=== PATIENT | female | born 1960 | race Caucasian/White ===

== ENCOUNTER 2023-01-06 07:20 | Day surgery (SDC) | payer BC ==
[~2023-01-06] VITALS: Ht 165.1 cm; Wt 74.0 kg
[2023-01-06] MEDS ORDERED: FOSAMAX 70MG TA70 MG PO (07:45)
[2023-01-06] MEDS ORDERED: CENTRUM1 TA1 (07:46)
[2023-01-06] MEDS ORDERED: CALCIUM 600600 MG PO (07:46)
[2023-01-06] MEDS ORDERED: VITAMIN D31000 IU PO (07:47)
[2023-01-06] MEDS ORDERED: OMEGA-3 1000 MG1 CAP PO (07:47)
[2023-01-06] MEDS ORDERED: PREMARIN VAG42.5 GM VG (07:50)
[2023-01-06] MEDS ORDERED: ATHLETE'S FOOT1% TP (07:51)
[2023-01-06] MEDS ORDERED: TEMOVATE0.05% TP (07:51)
[2023-01-06] MEDS ORDERED: HYDROCORTISONE30 G3 (07:52)
[2023-01-06] MEDS ORDERED: FLUOROURACIL5% TP (07:53)
[2023-01-06] MEDS ORDERED: UREA20% TOP (07:54)
[2023-01-06 08:26] VITALS: BP 99/79; PULSE 60; TEMP 98.2
--- NOTE | 2023-01-06 08:28 | NUR ---
0774 PT AMBULATORY TO BAY 3 WITH A STEADY GAIT, BREATHING EVEN AND UNLABORED. PT IS ALERT AND ORIENTED, ACCOMPANIED BY HER SISTER. CONSENTS REVIEWED AND SIGNED BY PT. IV ESTABLISHED. LR INFUSING VIA GRAVITY AT [facility]. CALL LIGHT IN REACH. WARM BLANKETS PROVIDED.
[2023-01-06 09:55] VITALS: BP 95/62; PULSE 74; TEMP 98.1
[2023-01-06 10:10] VITALS: BP 99/70; PULSE 58
[2023-01-06 10:25] VITALS: BP 107/66; PULSE 60
[2023-01-06 10:40] VITALS: BP 102/69; PULSE 68
--- NOTE | 2023-01-06 10:55 | NUR ---
0972 RETURNS TO ROOM 3 PER CART. AWAKE, ALERT. RESP UNLABORED. AMBULATES TO RECLINER WITH STANDBY ASSIST. DENIES NAUSEA, ABD PAIN OR DYSPHAGIA. VITAL SIGNS OBTAINED. CALL LIGHT AT SIDE. SISTER IN ROOM. 1010 TOLERATES PO JUICE AND MUFFIN WITHOUT NAUSEA. SWALLOWS WITHOUT DIFFICULTY 1020 DISCHARGE INSTRUCTIONS REVIEWED. PATIENT VERBALIZES UNDERSTANDING. COPY PROVIDED IN DISCHARGE FOLDER. 1035 DR. BAILON HERE TO VISIT WITH PATIENT. 1050 DRESSES SELF
== END 2023-01-06 10:55 | disposition home or self-care (01) ==
LOC: SDCO 07:20
DX: Z12.11 Encounter for screening for malignant neoplasm of colon (principal); K29.50 Unspecified chronic gastritis without bleeding; K25.9 Gastric ulcer, unspecified as acute or chronic, without hemorrhage or perforation; K21.9 Gastro-esophageal reflux disease without esophagitis; D12.3 Benign neoplasm of transverse colon; D12.2 Benign neoplasm of ascending colon; K31.89 Other diseases of stomach and duodenum; K64.0 First degree hemorrhoids
CPT/HCPCS: J2704; J7120